=== PATIENT | female | born 1985 | race Caucasian/White ===

== ENCOUNTER 2017-03-13 12:09 | Emergency (ER) | payer BC ==
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
[2017-03-13 12:58] LABS: CHLORIDE,CL 105 mmol/L (98-110); SODIUM,NA 138 mmol/L (136-146)
--- NOTE | 2017-03-13 13:40 | CT ---
EXAMINATION: Non contrast CT head. Coronal and sagittal reformats. HISTORY: Pain FINDINGS: No evidence of intra or extra axial hemorrhage, mass, midline shift, hydrocephalus or edema. No hypoattenuation changes in the major vascular territories to suggest acute infarct. No abnormal intracranial calcifications are detected. No evidence of substantial vascular calcificat ions. Mild mucosal thickening noted within the ethmoid air cells. Pituitary fossa appears unremarkable. Calvarium is intact. No evidence of skull fracture. IMPRESSION: No acute intracranial findings.
--- NOTE | 2017-03-13 13:41 | CR ---
EXAMINATION: Two-view chest (PA and Lateral views). HISTORY: Pain. FINDINGS: The trachea is midline. The cardiomediastinal silhouette is within normal limits. No pulmonary infilt rates, effusions or pneumothorax. Osseous structures appear unremarkable. IMPRESSION: No acute cardiopulmonary process.
--- NOTE | 2017-03-13 13:53 | CR ---
EXAMINATION: Cervical spine HISTORY: Pain COMPARISON: None TECHNIQUE: AP and lateral views FINDINGS: The cervical spinal alignment is normal. The vertebral body heights and disc spaces appear well-maintained. There is no fracture or dislocation. Bone mineralization is normal. The prevertebral soft tissues appear normal. IMPRESSION: Unremarkable cervical spine.
--- NOTE | 2017-03-13 13:54 | CR ---
EXAMINATION: Angina and HISTORY: Pain COMPARISON: None TECHNIQUE: 2 views FINDINGS/IMPRESSION: There is no acute osseous abnormality, dislocation, or fracture. Joint spaces an d bone mineralization appear normal. No soft tissue swelling.
--- NOTE | 2017-03-13 13:55 | CR ---
EXAMINATION: Sacrum and coccyx HISTORY: Pain COMPARISON: None TECHNIQUE: AP and lateral views FINDINGS: The sacrum and SI joints appear intact. Bone mineralization is normal. The iliopectineal li cornelia are preserved. Hip joint spaces are normal. Bone mineralization is normal. There is anterior angu lation of the coccyx without a definite fracture. An IUD projects over the pelvis. IMPRESSION: No definite acute osseous abnormality identified.
[2017-03-13 14:08] VITALS: BP 128/66
== END 2017-03-13 14:29 | disposition home or self-care (01) ==
LOC: MW.ED 12:09
DX: S20.212A Contusion of left front wall of thorax, initial encounter (principal); S60.221A Contusion of right hand, initial encounter; S40.212A Abrasion of left shoulder, initial encounter; Z79.899 Other long term (current) drug therapy; Z88.1 Allergy status to other antibiotic agents; Z91.048 Other nonmedicinal substance allergy status; V48.5XXA Car driver injured in noncollision transport accident in traffic accident, initial encounter; Y92.411 Interstate highway as the place of occurrence of the external cause
CPT/HCPCS: 36415; 70450; 70450-26; 71020; 71020-26; 72040; 72040-26; 72220; 72220-26; 73120-26-RT; 73120-RT; 80053; 81001; 81025; 85025; 99284; 99285-25